=== PATIENT | female | born 1990 | race Caucasian/White ===

== ENCOUNTER 2018-08-29 19:53 | Emergency (ER) | payer OTHER ==
[2018-08-29] MEDS ORDERED: DIPH/PERTUSS(ACELL)/TETANUS VAC/PF 0.5 ML SYR (>=10YO) IM ONE (21:41)
--- NOTE | 2018-08-29 21:44 | ER Document Report ---
Addendum entered and electronically signed by TAYLOR BARCENAS FNP 10/01/18 22:00: Procedures - Immobilization Left Thumb Pre-Proc Neuro Vasc Exam: Normal Immobilizer type: Thumb spica Performed by: PCT Post-Proc Neuro Vasc Exam: Normal, Unchanged from pre-exam Alignment checked and good: Yes Original Note: ED Animal Bite - General Chief Complaint: Dog Bite Stated Complaint: POSSIBLE DOG BITE Time Seen by Provider: 08/29/18 21:36 Notes: Patient is a 28-year-old female who presents to the emergency department with a chief complaint of a dog bite to her left thumb. She was playing with her dog, who is a puppy and she was accidentally bit while she was playing with them. This happened yesterday in the evening time. She states that she has a hard time moving her thumb up and down. She does have small abrasions where the puppy had bit her. She states her dog is up-to-date on his immunizations. She is not sure as to when her last tetanus shot was. TRAVEL OUTSIDE OF THE [place] IN LAST 30 DAYS: No Past Medical History - Social History Smoking Status: Current Every Day Smoker Frequency of alcohol use: Occasional Drug Abuse: None Family History: Reviewed & Not Pertinent Review of Systems - Review of Systems Notes: REVIEW OF SYSTEMS: CONSTITUTIONAL : Denies recent illness. Denies recent unintentional weight loss. Denies fever, chills, or sweats. EENT: Denies eye, ear, throat, or mouth pain, discharge, or symptoms. Denies nasal or sinus congestion. CARDIOVASCULAR: Denies chest pain. RESPIRATORY: Denies shortness of breath, cough, congestion, difficulty salina athing, or wheezing. GASTROINTESTINAL: Denies nausea, vomiting, and diarrhea. Denies abdominal pain. Denies constipation. GENITOURINARY: Denies difficulty urinating, burning, blood in urine, urgency or frequency. MUSCULOSKELETAL: See HPI SKIN: See HPI HEMATOLOGIC : Denies easy bruising or bleeding. LYMPHATIC: Denies swollen, painful, enlarged glands. NEUROLOGICAL: Denies no numbness or tingling denies weakness. Denies headache. Denies altered mental status. Denies alteration in speech. PSYCHIATRIC: Denies stress, anxiety, alteration in sleep patterns, or depression. All other systems reviewed and negative. Physical Exam - Vital signs Vitals: Temp Pulse Resp BP Pulse Ox 98.2 F 74 16 135/83 H 100 08/29/18 20:44 08/29/18 20:44 08/29/18 20:44 08/29/18 20:44 08/29/18 20:44 - Notes Notes: PHYSICAL EXAMINATION: GENERAL: Appears well, healthy, well-nourished, no acute distress. HEAD: Normocephalic, atraumatic. EYES: PERRL, conjunctiva normal, all extraocular movements intact, sclera nonicteric ENT: Moist mucous membranes. NECK: Supple, no noticeable swelling, redness, rash. Normal range of motion. LUNGS: Equal breath sounds bilaterally and clear to auscultation. No wheezes rales or rhonchi. CARDIOVASCULAR: S1-S2, regular rate, regular rhythm. Radial pulses 2+, normal. ABDOMEN: Normoactive bowel sounds. Soft, nontender, no guarding, no rebound tenderness, and no masses palpated. EXTREMITIES: Decreased range of motion to left first digit. All other extremities and digits have full range of motion. NEUROLOGICAL: Moves all extremities upon command. Strength 5/5 in all extremities. PSYCH: Normal mood, normal affect. SKIN: Warm, dry. No rash, lesions, ulcerations noted. Normal skin turgor. Course - Re-evaluation Re-evalutation: 08/29/18 22:57 Patient's left hand x-ray is negative for any fracture. She will be started on Augmentin. She is going to be referred to orthopedic surgery for follow-up. She does not have pain in her anatomical snuffbox area, therefore I do not suspect she has a scaphoid fracture at this time. She is still able to move her DIP joint, therefore I do not suspect she has any tendon injury at this time. I think that her limited range of motion is due to ecchymosis and edema to the area. I have instructed her to take Motrin and Tylenol [id number] for her pain. Verbal discharge instructions were given to the patient. They verbalized understanding. They are stable for discharge. - Vital Signs Vital signs: Temp Pulse Resp BP Pulse Ox 98.1 F 77 17 131/76 H 99 08/29/18 23:40 08/29/18 23:40 08/29/18 23:40 08/29/18 23:40 08/29/18 23:40 Discharge - Discharge Clinical Impression: Dog bite Qualifiers: Encounter type: initial encounter Qualified Code(s): W54.0XXA - Bitten by dog, initial encounter Thumb pain Qualifiers: Laterality: left Qualified Code(s): M79.645 - Pain in left finger(s) Disposition: HOME, SELF-CARE Additional Instructions: You were seen today in the emergency department for a dog bite. Your x-rays do not show a fracture. Please follow-up with an orthopedic doctor on Saturday in regards to this emergency department visit. You have also been given antibiotics. Please take all the medication as prescribed. You may take Motrin 600 mg and Tylenol 1000 mg every 6 hours as needed for the pain and inflammation. If you develop a fever, have worsening symptoms, or have any symptoms that are worrisome to you, please return to the emergency department. Prescriptions: Amox Tr/Potassium Clavulanate [Augmentin 875-125 Tablet] 1 tab PO BID 10 Days tablet Referrals: REYES DUFFY DO [ACTIVE STAFF] - 09/01/18
--- NOTE | 2018-08-29 22:09 | RADIOLOGY REPORT (SQ) ---
EXAM DESCRIPTION: XR HAND 3 OR MORE VIEWS COMPLETED DATE/TME: 08/29/2018 21:41 CLINICAL HISTORY: 28 years, Female, dog bite COMPARISON: None. NUMBER OF VIEWS: 3 TECHNIQUE: 3 view left hand LIMITATIONS: None. FINDINGS: Negative for acute fracture or dislocation. Soft tissues are unremarkable. Negative for radiopaque foreign body IMPRESSION: Negative exam copyright 2010 [employer]- All Rights Reserved
[2018-08-29] MEDS ORDERED: AMOXICILLIN TR/POT CLAVULANATE 500-125 MG TAB PO ONE (23:03)
[2018-08-29 23:43] VITALS: BP 131/76
== END 2018-08-29 23:40 | disposition home or self-care (01) ==
LOC: ER 19:53
DX: S61.052A Open bite of left thumb without damage to nail, initial encounter (principal); W54.0XXA Bitten by dog, initial encounter; Y93.K9 Activity, other involving animal care; F17.200 Nicotine dependence, unspecified, uncomplicated
CPT/HCPCS: 90471; 90715; 99283